=== PATIENT | female | born 1950 | race Caucasian/White ===

== ENCOUNTER 2024-12-08 06:10 | Day surgery (SDC) | payer OTHER ==
[2024-12-08] VITALS (12 sets, daily range): BP systolic 153–182; BP diastolic 65–89
[~2024-12-08] VITALS: Ht 175.3 cm; Wt 75.8 kg
[~2024-12-08 06:10] MED LIST: AMLO5 PO; Aspir 8181 MG PO; CETI5 PO; HYDCHL25 PO; HYDR10 PO; LISI20 PO; LORA10ER PO; Norco 5-325 Ta1 EACH PO; ONDA4ODT MM; PANT20 PO; PROP10 PO
[2024-12-08] MEDS ORDERED: Ropivacaine 0.5% HCl/Pf 123.125 MG,EPINEPHrine HCL 0.25 MG,Ketorolac Tromethamine 15 MG... INFIL SCH (06:15)
[2024-12-08] MEDS ORDERED: CeFAZolin Sodium 2,000 MG in NS 100 ML IV SCH ×2 (06:15→16:00)
[2024-12-08] MEDS ORDERED: Tranexamic Acid 100 ML IV SCH (06:15)
[2024-12-08] MEDS ORDERED: Chlorhexidine Mouth Care 15 ML UDC MT SCH (06:15)
--- NOTE | 2024-12-08 07:19 | NUR ---
Ambulatory in Day Surgery History, Chart, Medications and Allergies reviewed before start of procedure.Pre-Op teaching done. Pt verbalizes understanding. Patient States Post-Procedure ride home has been arranged.
[2024-12-08] MEDS ORDERED: Magnesium Sulf 2 GM/Water 50ML 50 ML IV ONE (07:20)
[2024-12-08] MEDS ORDERED: Midazolam HCl 1MG / ML 2ML Vial ONE (07:31)
[2024-12-08] MEDS ORDERED: FentaNYL Citrate 50 MCG/ML 2 ML Injection ONE (07:31)
[2024-12-08] MEDS ORDERED: Dexamethasone Sod Phos 10 MG/ML 1ML VIAL ONE (07:59)
[2024-12-08] MEDS ORDERED: Ketorolac Tromethamine 30mg Vial ONE (07:59)
[2024-12-08] MEDS ORDERED: ALPR.25 PO (08:12)
[2024-12-08] MEDS ORDERED: TRAM50 PO (08:12)
--- NOTE | 2024-12-08 08:12 | NUR ---
12/08/24 0812 DiazSobeida SPINAL BLOCK COMPLETED BY UPON ENTRY TO OR.
[2024-12-08] MEDS ORDERED: GABA400 (08:13)
[2024-12-08] MEDS ORDERED: Ondansetron HCl 2 MG / ML 2ML Vial IV PRN ×2 (08:15→11:00)
[2024-12-08] MEDS ORDERED: FentaNYL Citrate 50 MCG/ML 2 ML Injection IV PRN (08:15)
[2024-12-08] MEDS ORDERED: HYDROmorphone HCl/Pf 1MG SYR IV PRN ×2 (08:15→09:40)
[2024-12-08] MEDS ORDERED: Albuterol 2.5 MG/3 ML VIAL INH PRN (08:20)
[2024-12-08] MEDS ORDERED: HYDROmorphone HCl/Pf 1MG SYR ONE (08:55)
[2024-12-08] MEDS ORDERED: HYDROcodone 5-APAP 325 TAB PO PRN (09:35)
--- NOTE | 2024-12-08 10:06 | NUR ---
pt to room 216 from the recovery room. l tka. prineo dressing/polar pack in place. scds on and functioning. pt denies pain. initial bp 182 systolic. will continue to monitor. iv to sl. pro vided fluids and snacks. post op vs stable at this time. will continue to monitor.
[2024-12-08] MEDS ORDERED: Magnesium Hydroxide Conc 10 ML UDC PO PRN (11:00)
[2024-12-08] MEDS ORDERED: ASPI81CH PO (11:19)
--- NOTE | 2024-12-08 11:31 | NUR ---
PT UP TO CHAIR TO VOID WITH ONE ASSIST/FWW/GAIT BELT. TRANSFERRED TO [facility]. PT ENROUTE TO EVALUATE/TREAT PT.
--- NOTE | 2024-12-08 12:17 | NUR ---
PT CLEARED BY PT. DISCHARGE INSTRUCTION REVIEWED. STATED UNDERSTANDING. RIDE ENROUTE WITH PLAN TO ARRIVE AT 1300.
--- NOTE | 2024-12-08 13:02 | NUR ---
discharged to pov with polar pack, printed instruct.
== END 2024-12-08 13:00 | disposition home or self-care (01) ==
LOC: ORSCMMR 06:10 → ORD 07:30 → SURS 10:00 → ORD 11:00 → ORSCMMR 13:00
PROVIDERS: Orthopaedic Surgery
PROC: 0SRD0JA Replacement of Left Knee Joint with Synthetic Substitute, Uncemented, Open Approach (ICD-10-PCS; principal; 2024-12-08 07:30)
DX: M17.12 Unilateral primary osteoarthritis, left knee (principal); I10 Essential (primary) hypertension; M79.7 Fibromyalgia; Z79.899 Other long term (current) drug therapy
CPT/HCPCS: 73560-LT; 97110; 97116-CQ; 97161; A9270; C1776; J0166; J0690; J0735; J1100; J1171; J1885; J2250; J2704; J2795; J3010; J3475; J7120